=== PATIENT | female | born 1975 | race Asian ===

== ENCOUNTER → 2018-12-13 | Day surgery (SDC) | payer BC ==
[~2018-12-13] MED LIST: BENICAR HCT 201 EACH PO; FENTANYL CITRATE/PF 100MCG/2 ML INJ ONE; FOLIC ACID; IRON OTC; LIDOCAINE HCL 2% LOCAL INJ 5 ML SDV VIAL INJ ONE; MIDAZOLAM HCL 2 MG/2 ML VIAL ONE; MIGRAINE MED; OMEPRAZOLE40 MG PO; PROPOFOL IV EMULSION 10 MG/ML 50 ML VIAL ONE; THYROID MED; [UNRECOGNIZED DRUG - REMARK]
--- OUTSIDE RECORDS SUMMARY | 2018-12-13 08:17 | XMS REPORT ---
Author Author [facility] Address Unknown Phone Unavailable Care Team Providers Care Buffing Wheel Former Automatic Name Role Phone Unavailable Unavailable Payers Payer Name Policy Type Policy Number Effective Date Expiration Date Problems This patient has no known problems. Allergies, Adverse Reactions, Alerts Allergy Name Allergy Type Status Severity Reaction(s) Onset Date Inactive Date Treating Clinician Comments hydrocodone DA Active ID 2017-09-27 00:00:00 Medications This patient has no known medications. Encounters Start Date/Time End Date/Time Encounter Type Admission Type Attending Clinicians Care Facility Care Department Encounter ID 2018-02-10 00:00:00 2018-02-10 00:00:00 Outpatient [facility] [id number] 2018-01-12 04:26:45 2018-01-12 04:26:45 Emergency [facility] [id number] 2018-01-11 18:31:24 2018-01-11 18:31:24 Outpatient [facility] [id number] Results Test Description Test Time Test Comments Text Results Atomic Results Result Comments COMPREHENSIVE METABOLIC PANEL 2018-12-06 16:06:00 SODIUM (test code=NA) 142 mEq/L 134-147 POTASSIUM (test code=K) 3.7 mEq/L 3.4-5.0 CHLORIDE (test code=CL) 110 mEq/L 100-108 CARBON DIOXIDE (test code=CO2) 28 mEq/L 21-33 ANION GAP (test code=GAP) 8 0-20 GLUCOSE (test code=GLU) 104 mg/dL 70-110 BLOOD UREA NITROGEN (test code=BUN) 17 mg/dL 7-18 GLOMERULAR FILTRATION RATE (test code=GFR) 60.2 95-105 Units of measure=ml/min/1.73 m2 CREATININE (test code=CREAT) 1.0 mg/dL 0.6-1.3 TOTAL PROTEIN (test code=PROT) 8.0 g/dL 6.4-8.2 ALBUMIN (test code=ALB) 4.50 g/dL 3.4-5.0 CALCIUM (test code=CA) 9.6 mg/dL 8.0-10.5 BILIRUBIN TOTAL (test code=BILT) 0.60 mg/dL 0.0-1.0 SGOT/AST (test code=AST) 12 IUnit/L 15-37 SGPT/ALT (test code=ALT) 19 IUnit/L 15-65 ALKALINE PHOSPHATASE TOTAL (test code=ALKP) 108 IUnit/L 20-125 [id number] 16:06:00* Test Item Value Reference Range Comments LIPASE (test code=LIP) 109 IUnit/L 73-393 [id number] 16:06:00* Test Item Value Reference Range Comments TROPONIN-I (test code=TROPI) < 0.015 ng/mL 0.000-0.045 Negative: <=0.045 Positive: >=0.046 Correlation with serial results, other cardiac markers andclinical findings is necessary to determine the clinicalsignificance of this result. Results using different methodologies should not be comparedto one another as quantitative results may vary by method. URINALYSIS [id number] 15:58:00* Test Item Value Reference Range Comments UA COLOR (test code=COLU) STRAW YEL/STRAW UA APPEARANCE (test code=APPU) CLEAR CLEAR UA GLUCOSE DIPSTICK (test code=DGLUU) NEGATIVE NEGATIVE UA BILIRUBIN DIPSTICK (test code=BILU) NEGATIVE NEGATIVE UA KETONE DIPSTICK (test code=KETU) NEGATIVE NEGATIVE UA SPECIFIC GRAVITY (test code=SGU) 1.005 1.005-1.030 UA BLOOD DIPSTICK (test code=LLOYD) NEGATIVE NEGATIVE UA PH DIPSTICK (test code=KAYLAH) 7.0 5.0-7.0 UA PROTEIN DIPSTICK (test code=PROU) NEGATIVE NEGATIVE UA UROBILINIOGEN DIPSTICK (test code=URO) 0.2 mg/dL 0.2-1.0 UA NITRITE DIPSTICK (test code=PATRICK) NEGATIVE NEGATIVE UA LEUKOCYTE ESTERASE DIPSTICK (test code=LEUU) NEGATIVE NEGATIVE UA WBC (test code=WBCU) 0-3 WBC/HPF 0-3 UA RBC (test code=RBCU) 0-3 RBC/HPF 0-3 UA BACTERIA (test code=BACU) TRACE /HPF NONE SEEN UA SQUAMOUS CELLS (test code=SQU) 0-5 /HPF NONE SEEN UA MUCUS (test code=MUCU) TRACE /LPF NONE SEEN CBC W/AUTO [id number] 15:57:00* Test Item Value Reference Range Comments WHITE BLOOD CELL (test code=WBC) 6.08 x10 3/uL 4.5-11.0 RED BLOOD CELL (test code=RBC) 4.34 x10 6/uL 3.54-5.02 HEMOGLOBIN (test code=HGB) 12.0 g/dL 11.0-15.0 HEMATOCRIT (test code=HCT) 35.5 % 33.0-45.0 MEAN CELL VOLUME (test code=MCV) 81.8 fL 81.0-99.0 MEAN CELL HGB (test code=MCH) 27.6 pg 27.0-33.0 MEAN CELL HGB CONCETRATION (test code=MCHC) 33.8 g/dL 33.0-37.0 RED CELL DISTRIBUTION WIDTH CV (test code=RDW) 13.2 % 11.5-14.5 RED CELL DISTRIBUTION WIDTH SD (test code=RDW-SD) 39.3 fL 37.0-54.0 PLATELET COUNT (test code=PLT) 348 x10 3/uL 150-400 MEAN PLATELET VOLUME (test code=MPV) 9.9 fL 7.0-9.0 NEUTROPHIL % (test code=NT%) 57.7 % 56.0-77.0 IMMATURE GRANULOCYTE % (test code=IG%) 0.3 % 0.0-2.0 LYMPHOCYTE % (test code=LY%) 34.9 % 14.0-32.0 MONOCYTE % (test code=MO%) 5.8 % 4.8-9.0 EOSINOPHIL % (test code=EO%) 0.8 % 0.3-3.7 BASOPHIL % (test code=BA%) 0.5 % 0.0-2.0 NUCLEATED RBC % (test code=NRBC%) 0.0 % 0-0 NEUTROPHIL # (test code=NT#) 3.51 x10 3/uL 2.0-7.6 IMMATURE GRANULOCYTE # (test code=IG#) 0.02 x10 3/uL 0.00-0.03 LYMPHOCYTE # (test code=LY#) 2.12 x10 3/uL 1.0-3.8 MONOCYTE # (test code=MO#) 0.35 x10 3/uL 0.1-0.8 EOSINOPHIL # (test code=EO#) 0.05 x10 3/uL 0.0-0.2 BASOPHIL # (test code=BA#) 0.03 x10 3/uL 0.0-0.2 NUCLEATED RBC # (test code=NRBC#) 0.00 x10 3/uL 0.0-0.1 MANUAL DIFF REQUIRED (test code=MDIFF) NO - CT HEAD/BRAIN W/O [id number] 15:55:00 Name: CHAS MONTALVO [facility] : 1975 Age/S: 43 / F [address] [place] [address] Unit #: [id number] Loc: [place] [address] Phys: Amy Dorsey MD Acct: [id number] Dis Date: Status: REG ER PHONE #: [phone] Exam Date: 12/06/2018 1540 FAX #: [phone] Reason: n/v h/a EXAMS: CPT CODE: [id number] CT HEAD/BRAIN W/O CONT 16130 STUDY: - CT HEAD/BRAIN W/O CONT 12/06/2018 2:49 PM Ordering Physician: Amy Dorsey MD Patient Name: CHAS MONTALVO MR: [id number] : 1975; Age: 43 years y/o Female Clinical Indication: Headache with nausea and vomiting. Comparison: None TECHNIQUE: Multiple contiguous transaxial noncontrast CT images were obtained through the head. Coronal and sagittal reformatted images were prepared. DLP: 419.70 mGy-cm FINDINGS: BRAIN PARENCHYMA: The brain volume is appropriate for age. No evidence of acute intracranial hemorrhage, mass lesion, mass effect, midline shift, or extra-axial fluid collection. VENTRICLES: The lateral ventricles, third ventricle, fourth ventricle, and basilar cisterns are appropriate for degree of atrophy present. PARANASAL SINUSES: Minimal mucoperiosteal thic kening in the ethmoid sinus. The remaining paranasal sinuses are clear. MASTOIDS: Clear. ORBITS: The visualized portions of t he orbits are normal. SOFT TISSUES: No significant abnormality. SKULL: No acute fracture or suspicious osseous lesion. IMPRESSION: Normal brain without acute intracranial abnormality. Minimal chronic sinusitis. PAGE 1 Signed Report (CONTINUED) Name: CHAS MONTALVO [facility] : 1975 Age/S: 43 / F [address] [place] [address] Unit #: [id number] Loc: [place] [address] Phys: Amy Dorsey MD Acct: [id number] Dis Date: Status: REG ER PHONE #: [phone] Exam Date: 12/06/2018 1540 FAX #: [phone] Reason: n/v h/a EXAMS: CPT CODE: [id number] CT HEAD/BRAIN W/O CONT 92010 <Continued> SL: TPAINTER-H at 1555 Reported and signed by: Moreno Cassidy M.D. CC: Amy Dorsey MD Technologist:Julia Wilson RT(R)(CT) CTDI: DLP: Trnscb Date/Time: 12/06/2018 (3365) [email or web address] Orig Print D/T: S: 12/06/2018 (9438) CTDI: DLP: PAGE 2 Signed Report - XR CHEST 2 [id number] 15:38:00 FAX: Amy Dorsey MD [phone] [place]: St: REG Name: CHAS FINCH [facility] : [birth year] Age/S: 43/F [address] [place] [address] Unit #: [id number] Loc: [place] [address] Phys: Amy Dorsey MD Acct: [id number] Dis Date: Status: REG ER PHONE #: [phone] Exam Date: 12/06/2018 153 FAX #: [phone] Reason: cp EXAMS: CPT CODE: [id number] XR CHEST 2 V 80814 2 view chest x-ray performed December 06, 2018 1535 hours. COMPARISON: none. CLINICAL HIS TORY: Nausea and vomiting, chest pain. DISCUSSION: 2 views/ film s of the chest are submitted. Lungs are clear bilaterally. Cardiomediastin al silhouette is normal. Osseous structures are within normal limits. IMPRESSION: Normal Chest X-ray. at 1538 Report ed and signed by: Claudia Zayas M.D. CC: Amy muir MD Technologist: Chas Puentes RT(R) Trnscrd Date/Time/By: 12/06/2018 (1538) : By: yunior COOK Orig Print D/T: S: 12/06/2018 (3282) P AGE 1 Signed Report
--- OUTSIDE RECORDS SUMMARY | 2018-12-13 08:17 | XMS REPORT | Clinical Summary ---
Author Author [facility] Organization [facility] Address Unknown Phone Unavailable Care Team Providers Care Offset Pressman Name Role Phone PCP Unavailable Allergies No Known Allergies Medications End Date Status Medication Sig Dispensed Refills Start Date Active gabapentin (NEURONTIN) Take 1 90 capsule 0 300 mg capsule by 8 capsuleIndications: mouth 3 times Chronic right shoulder daily. pain Active Problems Problem Noted Date Midline low back pain with sciatica 01/11/2018 Chronic midline back pain Chronic right shoulder pain Encounters Care Team Description Date Type Specialty Dewayne Lopez MD Chronic right shoulder pain (Primary Dx); Bilateral hand swelling; Chronic midline back pain, unspecified back location 01/12/2018 Emergency Emergency Medicine after 12/12/2017 Social History Date Tobacco Use Types Packs/Day Years Used Former Smoker Smokeless Tobacco: Never Used Alcohol Use Drinks/Week oz/Week Comments Yes Sex Assigned at Date Recorded Not on file Industry Job Start Date Occupation Not on file Not on file Not on file Travel End Travel History Travel Start No recent travel history available. Last Filed Vital Signs Time Taken Vital Sign Reading 01/12/2018 7:20 AM CDT Blood Pressure 145/100 01/12/2018 7:20 AM CDT Pulse 93 01/12/2018 7:20 AM CDT Temperature 36.7 C (98 F) 01/12/2018 7:20 AM CDT Respiratory Rate 20 01/12/2018 7:20 AM CDT Oxygen Saturation 98% - Inhaled Oxygen - Concentration 01/11/2018 1:43 PM CDT Weight 54.4 kg (120 lb) 01/11/2018 1:43 PM CDT Height 162.6 cm (5' 4") 01/11/2018 1:43 PM CDT Body Mass Index 20.6 Plan of Treatment Health Maintenance Due Date Last Done Comments Cervical Cancer Scrn (3 1995 Yrs) Breast Cancer Scrn 2014 (Yearly) IMM Influenza Seasonal 06/05/2019 Oct to November (>/=19 yrs) Procedures Comments Procedure Name Priority Date/Time Associated Diagnosis FREE T4 STAT 01/12/2018 5:15 AM CDT TSH STAT 01/12/2018 5:15 AM CDT B NATRIURETIC PEPT STAT 01/12/2018 5:15 AM CDT XRAY SPINE LUMBOSACRAL STAT 01/11/2018 AP-LAT 6:58 PM CDT XRAY SPINE CERVICAL 4-5 STAT 01/11/2018 VIEWS 6:58 PM CDT BASIC METABOLIC PANEL Routine 01/11/2018 5:13 PM CDT TEST STAT 01/11/2018 4:54 PM CDT BMP POC Routine 01/11/2018 3:19 PM CDT after 12/12/2017 Results * B NATRIURETIC PEPT (01/12/2018 5:15 AM CDT) B Natriuretic 12 <101 pg/mL BT MAIN-STATION Pept 1 Specimen Blood Performing Organization Address [facility] [place] Phone Number MISYS BT MAIN-STATION 1 * TSH (01/12/2018 5:15 AM CDT) TSH 5.91 (H) 0.57 - 3.74 uIU/mL BT MAIN-STATION 1 Specimen Blood Performing Organization Address [facility] [place] Phone Number MISYS BT MAIN-STATION 1 * FREE T4 (01/12/2018 5:15 AM CDT) Free T4 0.79 0.61 - 1.18 ng/dl BT MAIN-STATION Comment: 1 females: 1st Trimester-0.52-1.10 ng/dL 2nd Trimester=0.45-0.99 ng/dL 3rd Trimester=0.48-0.95 ng/dL Specimen Blood Performing Organization Address [facility] [place] Phone Number MISYS BT MAIN-STATION 1 * XRAY SPINE LUMBOSACRAL AP-LAT (01/11/2018 6:58 PM CDT) Impressions Performed At IMPRESSION: SMS No acute radiographic abnormality. Dictated By: Jordy Andres MD, 01/11/2018 8:33 PM I have reviewed the study and agree with the findings in this report. Signed By: Olayinka Capellan MD, 01/11/2018 8:40 PM Narrative Performed At Lumbar Spine Radiographs:3 views AP/LAT/spot SMS HISTORY:Low back pain, radiculopathy COMPARISON: None available. DISCUSSION: Some of the osseous structures are partially obscured by stool and bowel gas. There are five non-rib bearing lumbar vertebral bodies. The alignment of the spine is within normal limits. No displaced fracture or compression deformity is identified. Disc Spaces: The disc spaces are well maintained. Facets: Facet arthrosis at L5-S1. Procedure Note Interface, Rad/Mammog In - 01/11/2018 8:45 PM CDT Lumbar Spine Radiographs: 3 views AP/LAT/spot HISTORY: Low back pain, radiculopathy COMPARISON: None available. DISCUSSION: Some of the osseous structures are partially obscured by stool and bowel gas. There are five non-rib bearing lumbar vertebral bodies. The alignment of the spine is within normal limits. No displaced fracture or compression deformity is identified. Disc Spaces: The disc spaces are well maintained. Facets: Facet arthrosis at L5-S1. IMPRESSION IMPRESSION: No acute radiographic abnormality. Dictated By: Jordy Andres MD, 01/11/2018 8:33 PM I have reviewed the study and agree with the findings in this report. Signed By: Olayinka Capellan MD, 01/11/2018 8:40 PM Performing Organization Address City/State/Zipcode Phone Number SMS * XRAY SPINE CERVICAL 4-5 VIEWS (01/11/2018 6:58 PM CDT) Impressions Performed At IMPRESSION: SMS No acute radiographic abnormality. Dictated By: Jordy Andres MD, 01/11/2018 8:33 PM I have reviewed the study and agree with the findings in this report. Signed By: Olayinka Capellan MD, 01/11/2018 8:40 PM Narrative Performed At Cervical Spine, 5 views lateral/oblique/AP/odontoid SMS HISTORY:Pain, arm paresthesias COMPARISON:None. FINDINGS: Limited sensitivity for detection of subtle fractures and ligamentous abnormalities. On the lateral view, the cervical spine is visualized from the skull base to C7. The alignment is normal. No acute displaced fracture involving the visualized cervical spine. Disc Spaces and Uncovertebral Joints: Unremarkable. Facets: The facet joints are unremarkable. Procedure Note Interface, Rad/Mammog In - 01/11/2018 8:46 PM CDT Cervical Spine, 5 views lateral/oblique/AP/odontoid HISTORY: Pain, arm paresthesias COMPARISON: None. FINDINGS: Limited sensitivity for detection of subtle fractures and ligamentous abnormalities. On the lateral view, the cervical spine is visualized from the skull base to C7. The alignment is normal. No acute displaced fracture involving the visualized cervical spine. Disc Spaces and Uncovertebral Joints: Unremarkable. Facets: The facet joints are unremarkable. IMPRESSION IMPRESSION: No acute radiographic abnormality. Dictated By: Jordy Andres MD, 01/11/2018 8:33 PM I have reviewed the study and agree with the findings in this report. Signed By: Olayinka Capellan MD, 01/11/2018 8:40 PM Performing Organization Address City/[place] Phone Number SMS * BASIC METABOLIC PANEL (01/11/2018 5:13 PM CDT) CO2 24 21 - 31 mmol/L BT MAIN-STATION 1 Chloride 106 98 - 107 mmol/L BT MAIN-STATION 1 Potassium 3.9 3.5 - 5.1 mmol/L BT MAIN-STATION 1 Sodium 140 136 - 145 mmol/L BT MAIN-STATION 1 Glucose 95 70 - 110 mg/dL BT MAIN-STATION 1 Urea Nitrogen 12 7 - 25 mg/dL BT MAIN-STATION 1 Creatinine 0.60 0.6 - 1.2 mg/dL BT MAIN-STATION 1 Anion Gap 10 BT MAIN-STATION 1 Calcium 9.7 8.6 - 10.3 mg/dL BT MAIN-STATION 1 GFR, Estimated >60 mL/min/1.73 m2 BT MAIN-STATION 1 GFR, Estim, >60 mL/min/1.73 m2 BT MAIN-STATION Afr-Am 1 Performing Organization Address City/State/Zipcode Phone Number MISYS BT MAIN-STATION 1 * TEST (01/11/2018 4:54 PM CDT) Negative BT MAIN-STATION 3 Specimen Urine Performing Organization Address City/State/Zipcode Phone Number MISYS BT MAIN-STATION 3 * BMP POC (01/11/2018 3:19 PM CDT) CO2 POC 22 21 - 32 mmol/L BT MAIN-STATION 1 Chloride POC 107 98 - 107 mmol/L BT MAIN-STATION 1 Potassium POC 3.7 3.50 - 5.10 mmol/L BT MAIN-STATION 1 Sodium POC 141 136 - 145 mmol/L BT MAIN-STATION 1 Glucose POC 99 74 - 106 mg/dL BT MAIN-STATION 1 Urea Nitrogen 11 7 - 18 mg/dL BT MAIN-STATION POC 1 Creatinine POC 0.7 0.6 - 1.3 mg/dL BT MAIN-STATION 1 Calcium Ionized 1.20 1.15 - 1.29 mmol/L BT MAIN-STATION POC 1 Hemoglobin POC 12.2 12.0 - 16.0 g/dL BT MAIN-STATION 1 Hematocrit POC 36.0 (L) 37.0 - 47.0 % BT MAIN-STATION 1 GFR, Estimated >60 mL/min/1.73 m2 BT MAIN-STATION 1 GFR, Estim, >60 mL/min/1.73 m2 BT MAIN-STATION Afr-Am 1 Performing Organization Address City/State/Zipcode Phone Number MISYS BT MAIN-STATION 1 after 12/12/2017 Insurance Type Payer Benefit Subscriber ID Effective Phone Address Plan / Dates Group [facility] xxxxxxxxx 2017-P [phone] [address] [facility] resent [id number] [place] [address]
[2018-12-13 12:20] VITALS: BP 108/68
--- NOTE | 2018-12-13 12:44 | Operative Report ---
DATE OF PROCEDURE: 12/13/2018 SURGEON: Carmelo Castillo MD PROCEDURES: Esophagogastroduodenoscopy with esophageal dilatation, biopsies and brushings. INDICATIONS FOR EGD: Dysphagia to solids, nausea, and vomiting. MEDICATIONS: The patient was done under MAC, please see anesthesiologist's note. PROCEDURE IN DETAIL: With the patient in left lateral decubitus position, a flexible fiberoptic Olympus gastroscope was inserted into the esophagus under direct visualization without any difficulty. There was some scattered whitish plaques noted in the esophagus and brushings were obtained and sent to stain for Ольга. Biopsies were obtained. Also from the esophagus to rule out eosinophilic esophagitis. The esophagus was dilated to size 52-Bel[place]ian Alvarez. The scope was then advanced with ease into the stomach traversing a small sliding hiatal hernia. Mucosa overlying the antrum and the body revealed some patchy erythema and low-grade to moderate edema and biopsies were obtained and sent to stain for H pylori. The pylorus was of normal contour and shape, it was intubated with ease and the scope was advanced all the way to the second portion of the duodenum. Biopsies were obtained from the proximal second portion and duodenal bulb to rule out sprue. The scope was then withdrawn back into the stomach and retroflexed and mucosa overlying the fundus and cardia appeared to be within normal limits. The scope was then straightened out, it was subsequently withdrawn. The patient tolerated the procedure well. IMPRESSION: 1. Rule out Ольга esophagitis. 2. Rule out eosinophilic esophagitis. 3. Esophagus dilated to size 52-Belarusian Alvarez. 4. Small sliding hiatal hernia. 5. Gastritis, biopsied. Biopsies sent to stain for Helicobacter pylori. 6. Rule out sprue. PLAN: Follow up histology. Followup esophageal brushings. Continue omeprazole 40 mg one p.o. a.c. b.i.d. Add Reglan 10 mg one p.o. a.c. t.i.d. Carmelo Castillo MD [facility] [place]/GEORGE /[id number] cc: Olayinka Andrade DO
== END | disposition home or self-care (01) ==
LOC: ENDO 08:15
PROVIDERS: ATTEND Internal Medicine Gastroenterology
DX: K29.70 Gastritis, unspecified, without bleeding (principal); B37.81 Candidal esophagitis; K92.0 Hematemesis; K21.9 Gastro-esophageal reflux disease without esophagitis; K44.9 Diaphragmatic hernia without obstruction or gangrene; E27.1 Primary adrenocortical insufficiency; F41.9 Anxiety disorder, unspecified; Z80.0 Family history of malignant neoplasm of digestive organs
CPT/HCPCS: 43239; 43450; J2001; J2250; J2704; 43235

== ENCOUNTER → 2019-01-03 | Outpatient (CLI) | payer BC ==
[~2019-01-03] MED LIST changes: -FENTANYL CITRATE/PF 100MCG/2 ML INJ ONE; -LIDOCAINE HCL 2% LOCAL INJ 5 ML SDV VIAL INJ ONE; -MIDAZOLAM HCL 2 MG/2 ML VIAL ONE; -PROPOFOL IV EMULSION 10 MG/ML 50 ML VIAL ONE
--- NOTE | 2019-01-03 13:10 | Diagnostic Imaging Report ---
EXAMINATION: Right upper quadrant ultrasound CLINICAL INDICATION: Bloating, early satiety COMPARISON: CT abdomen and pelvis report 03/26/2014. No images were available for review. DISCUSSION: Transverse and longitudinal images of the right upper quadrant were obtained. The liver is normal in size measuring 13.7centimeters in length in the right midclavicular line and shows normal echogenicity. Dystrophic shadowing calcifications at the dome of the liver measure 2 cm in maximum dimension. These were described on the comparison CT. There is no intrahepatic biliary dilatation. The common bile duct measures 0.2 cm in caliber. The main portal vein is normal in caliber and measures 0.8 centimeters with normal hepatopetal flow. Small polypoid lesion in the gallbladder measures 4 mm. No shadowing calculus, wall thickening, or pericholecystic fluid. Sonographic Villa sign is reported as negative. The visualized portions of the pancreatic body and tail are unremarkable. The right kidney measures 9.7 centimeters in length. There is normal renal cortical echogenicity and no hydronephrosis, mass or shadowing calculi. Abdominal aorta is nonaneurysmal. IVC is patent. No free fluid is seen. IMPRESSION: 4 mm gallbladder polyp should be assessed for stability by right upper quadrant ultrasound in one year. No cholelithiasis or sonographic evidence of acute cholecystitis. Dystrophic calcifications in the hepatic dome, likely sequela of prior infectious or traumatic process. Signed by: Dr. Elver Barnhart M.D. on 01/03/2019 1:07 PM
--- NOTE | 2019-01-03 17:03 | Diagnostic Imaging Report ---
Hepatobiliary Scan with Gallbladder Ejection Fraction Clinical information: 43 F with reflux and abdominal pain Report: Following intravenous administration of 7 millicuries of Tc-99m mebrofenin, dynamic images of the abdomen in the anterior projection were obtained through 55 minutes. Sincalide (CCK analog) 1.2 micrograms was administered intravenously over 30 minutes with additional imaging for determination of gallbladder ejection fraction. Perfusion to the liver is normal. Extraction of tracer from the blood pool by the liver parenchyma is normal. Tracer is seen promptly within the biliary tract. The gallbladder begins to fill by 50 minutes post-injection of tracer and fills adequately. Tracer is seen in the small bowel by 16 minutes. The gallbladder ejection fraction with administration of sincalide is 78% (normal greater than 40%). Impression: 1. Filling of the gallbladder excludes the diagnosis of acute cystic duct obstruction/acute cholecystitis. 2. Normal gallbladder ejection fraction of 78% does not support the clinical diagnosis of chronic cholecystitis/gallbladder dyskinesia. Signed by: Dr. Dilcia Pineda M.D. on 01/03/2019 4:59 PM
== END ==
LOC: US 12:17
PROVIDERS: ATTEND Internal Medicine Gastroenterology
DX: R14.0 Abdominal distension (gaseous) (principal); R68.81 Early satiety
CPT/HCPCS: 76705; 78227; A9537

== ENCOUNTER → 2019-01-18 | Outpatient (CLI) | payer BC ==
[~2019-01-18] MED LIST changes: +IOPAMIDOL 370 MG/ML 200 ML INFUS..BTL INJ ONE; +SODIUM CHLORIDE 0.9% 50ML 50 ML ONE
--- NOTE | 2019-01-18 16:22 | Diagnostic Imaging Report ---
EXAMINATION: CT of the abdomen and pelvis with contrast. TECHNIQUE: Spiral CT images of the abdomen and pelvis were performed from the lung bases to the lesser trochanters after the intravenous administration of 100 cc Isovue-370. Coronal and sagittal reformatted images were obtained. COMPARISON: Gallbladder ultrasound 01/03/2019, CT abdomen and pelvis with contrast 05/02/2013 CLINICAL HISTORY:Abdominal pain weight loss constipation vomiting. Patient reports hysterectomy, appendectomy, DISCUSSION: ABDOMEN/PELVIS: LOWER THORAX:Unremarkable. HEPATOBILIARY: Unchanged amorphous dystrophic calcifications at the hepatic dome. No additional focal hepatic lesion. No intrahepatic biliary ductal dilatation. Gallbladder is unremarkable. Small gallbladder polyp described on the comparison ultrasound is not visualized by CT. SPLEEN: No splenomegaly. PANCREAS: No focal masses or ductal dilatation. ADRENALS: No adrenal nodules. KIDNEYS/URETERS: No hydronephrosis, stones, or solid mass lesions. PELVIC ORGANS/BLADDER: Urinary bladder is unremarkable. Uterus is not identified in keeping with hysterectomy. No adnexal mass. PERITONEUM/RETROPERITONEUM: No ascites. No pneumoperitoneum. LYMPH NODES: No pelvic sidewall, retroperitoneal, or mesenteric lymphadenopathy. VESSELS: Abdominal aorta, major branch vessels, and iliac arterial systems are well-visualized and patent. Portal vein, splenic vein, and central superior mesenteric vein are patent. Incidental note of a circumaortic left renal vein. GI TRACT: The large bowel shows no distention or wall thickening. Ovoid high attenuation foci are found in the transverse and descending colon, likely antacid or other metallic salt containing medication tablets. Postsurgical changes along the cecum related to prior appendectomy. No small bowel dilatation to suggest obstruction. BONES AND SOFT TISSUE: No osseous destructive lesions. No focal soft tissue abnormalities. IMPRESSION: No acute intra-abdominal or pelvic CT abnormalities. Signed by: Dr. Elver Barnhart M.D. on 01/18/2019 4:19 PM
== END ==
LOC: CT 14:59
PROVIDERS: ATTEND Internal Medicine Gastroenterology
DX: R10.9 Unspecified abdominal pain (principal)
CPT/HCPCS: 74177; Q9967

== ENCOUNTER → 2020-11-03 | Day surgery (SDC) | payer BC ==
[~2020-11-03] MED LIST changes: +CIPRO500 MG PO; +CLONIDINE HCL0.2 MG PO; +FENTANYL CITRATE/PF 100MCG/2 ML INJ ONE; +FLAGYL500 MG PO; +HYOSCYAMINE SULFATE 0.5 MG/ML INJ ONE; -IOPAMIDOL 370 MG/ML 200 ML INFUS..BTL INJ ONE; +LIDOCAINE HCL 2% LOCAL INJ 5 ML SDV VIAL INJ ONE; +METOCLOPRAMIDE HCL 10 MG/2ML VIAL ONE; +MIDAZOLAM HCL 2 MG/2 ML VIAL ONE; +PANTOPRAZOLE 40 MG 10ML VIAL IV STA; +PANTOPRAZOLE 40 MG 10ML VIAL ONE; -SODIUM CHLORIDE 0.9% 50ML 50 ML ONE; +TYLENOL # 31 EA PO; +Z QUIL PO
[2020-11-03 16:30] VITALS: BP 140/98
[2020-11-03 16:52] LABS: WBC,FECAL (FECAL LACTOFERRIN) NEGATIVE (NEGATIVE)
[2020-11-04 10:22] LABS: C DIFFICILE TOXIN A&B AMP PROB NEGATIVE (NEGATIVE)
== END | disposition home or self-care (01) ==
LOC: OR 12:08
PROVIDERS: ATTEND Internal Medicine Gastroenterology
DX: K52.9 Noninfective gastroenteritis and colitis, unspecified (principal); K29.50 Unspecified chronic gastritis without bleeding; R11.2 Nausea with vomiting, unspecified; R63.4 Abnormal weight loss; R03.0 Elevated blood-pressure reading, without diagnosis of hypertension; Z01.812 Encounter for preprocedural laboratory examination; Z20.822 Contact with and (suspected) exposure to COVID-19; K20.90 Esophagitis, unspecified without bleeding; K62.89 Other specified diseases of anus and rectum; K64.8 Other hemorrhoids; Z68.20 Body mass index [BMI] 20.0-20.9, adult
CPT/HCPCS: 43239; 43450; 45380; 83630; 83993; 87045; 87177; 87328; 87493; C9113; J1980; J2001; J2250; J2765; J3010; U0002; 45378